=== PATIENT | male | born 1995 | race Caucasian/White ===

== ENCOUNTER 2017-07-16 14:10 | Emergency (ER) | payer MEDICAID, OTHER ==
[~2017-07-16] VITALS: Ht 160 cm; Wt 70.3 kg
[2017-07-16 14:27] VITALS: BP 148/89
--- NOTE | 2017-07-16 14:30 | NUR ---
PT PLACED IN THE ER LOBBY TO WAIT FOR A BED.
--- NOTE | 2017-07-16 14:40 | NUR ---
21 YO M BIB SELF W/ C/O A SHARP PAIN WHEN HE COUGHS THAT IS 10/10 IN HIS LUNGS BILAT. PT DENIES THE PAIN WHEN BREATHING IN OR OUT, STATES IT IS ONLY WHEN HE COUGHS. 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 DENIES N/V, BUT REPORTS FEELING CHILLS OR FEVERISH, DID NOT TAKE TEMPERATURE. PT DENIES ANY OTHER SYMPTOMS. PT A&O X4. GCS 15. CMS INTACT. AMBULATORY W/ STEADY GAIT. RR EVEN AND UNLABORED AT THIS TIME. LUNG SOUNDS CLEAR. ABD SOFT NON-TENDER. ER SECHRIST NOTIFIED. SAFETY PRECAUTIONS IN PLACE. PT NEEDS MET. WILL CONTINUE TO MONITOR.
--- NOTE | 2017-07-16 14:41 | NUR ---
PATIENT AMBULATED TO ER BED 9
[2017-07-16] MEDS ORDERED: ONDANSETRON 4 MG ODT PO ONE (15:05)
--- NOTE | 2017-07-16 15:45 | NUR ---
pt resting comfortably in [facility] at this time. will continue to monitor.
[2017-07-16 16:13] LABS: ANION GAP 12.1 (8-16); CARBON DIOXIDE 27.5 mmol/L (21-32); CREATININE 1.1 mg/dL (0.7-1.3); POTASSIUM 3.6 mmol/L (3.5-5.1)
[2017-07-16 16:14] LABS: BASOPHILS % (AUTO) 0.3 % (0.0-2.0); EOSINOPHILS # (AUTO) 0.1 K/uL (0-0.4); EOSINOPHILS % (AUTO) 1.4 % (0.0-4.0); HEMATOCRIT 44.5 % (36-52); HEMOGLOBIN 15.3 g/dL (12.0-18.0); LYMPHOCYTES # (AUTO) 0.8 K/uL (2.0-11.5); LYMPHOCYTES % (AUTO) 9.4 % (20.5-51.1); MEAN CORPUSCULAR HEMOGLOBIN 30 pg (27-31); MEAN CORPUSCULAR HGB CONC 34 g/dL (33-37); MEAN CORPUSCULAR VOLUME 87.7 fL (80-94); MONOCYTES # (AUTO) 0.8 K/uL (0.8-1.0); MONOCYTES % (AUTO) 8.6 % (1.7-9.3); NEUTROPHILS % (AUTO) 80.3 % (42.2-75.2); PLATELET COUNT (AUTO) 172 K/uL (140-450); RED BLOOD CELL COUNT(AUTO) 5.07 MIL/uL (4.20-6.10); RED CELL DISTRIBUTION WIDTH 12.9 % (11.6-13.7); WHITE BLOOD COUNT (AUTO) 8.7 K/uL (4.8-10.8)
[2017-07-16 16:22] LABS: ALBUMIN 4.1 g/dL (3.4-5.0); TOTAL BILIRUBIN 0.5 mg/dL (0.0-1.0)
--- NOTE | 2017-07-16 16:59 | NUR ---
Dr Lundy at pt bedside at this time. will continue to monitor.
[2017-07-16 17:06] VITALS: BP 136/74
--- NOTE | 2017-07-16 17:06 | NUR ---
Patient discharged with v/s stable. Written and verbal after care instructions given and explained. Patient verbalized understanding. Ambulatory with steady gait. All questions addressed prior to discharge. Advised to follow up with PMD.
== END 2017-07-16 17:06 | disposition home or self-care (01) ==
LOC: MED 14:10
DX: J06.9 Acute upper respiratory infection, unspecified (principal)
CPT/HCPCS: 36415; 71045; 80053; 85025; 99285; Q0092; S0119

== ENCOUNTER 2018-05-16 22:36 | Emergency (ER) | payer OTHER ==
[~2018-05-16] VITALS: Ht 160 cm; Wt 73.9 kg
[2018-05-16 22:44] VITALS: BP 129/59
--- NOTE | 2018-05-16 22:44 | NUR ---
PT TAKEN TO BED 2
--- NOTE | 2018-05-16 23:00 | NUR ---
PT BIB SELF C/O CHEST PAIN. PT STATES TO VOMITING 3 TIMES TODAY, THIN WHITE MUCOUS; FEVER X3 DAYS AGO; INTERMITTENT SHARP 5/10 CHEST PAIN, NON RADIATING; COUGH X3 DAYS. --AAOX4; SKIN WARM, DRY AND INTACT, COLOR APPROPRIATE TO RACE; LUNG SOUND CLEAR BL; BOWEL SOUNDS ACTIVE X4 QUAD; CAP REFIL <3. --PT IN BED; BED IN LOWER LOCKED POSITION. ER MD MADE AWARE OF STATUS. WILL CONTINUE TO MONITOR. PMH: DENIES RX: DENIES
--- NOTE | 2018-05-16 23:45 | NUR ---
Patient discharged with v/s stable. Written and verbal after care instructions given and explained. Patient alert, oriented and verbalized understanding of instructions. Ambulatory with steady gait. All questions addressed prior to discharge. ID band removed. Patient advised to follow up with PMD. Rx of Naprosyn, and Guaiatussin given. Patient educated on indication of medication including possible reaction and side effects. Opportunity to ask questions provided and answered.
[2018-05-17 00:40] VITALS: BP 132/54
== END 2018-05-16 23:45 | disposition home or self-care (01) ==
LOC: MED 22:36
DX: J20.9 Acute bronchitis, unspecified (principal); R07.9 Chest pain, unspecified
CPT/HCPCS: 71045; 93005; 99283; Q0092

== ENCOUNTER 2018-10-06 18:11 | Emergency (ER) | payer OTHER ==
[~2018-10-06] VITALS: Ht 160 cm; Wt 73.5 kg
[2018-10-06 18:18] VITALS: BP 128/73
--- NOTE | 2018-10-06 18:45 | NUR ---
PT C/O COUGH WITH ALOT OF PHLEGM ACCOMPANIED BY R EAR PAIN 6/10 X 1 WEEK. O2 SAT 96% RA. HAS SLIGHT REDNESS ON THE RT EYES. PER PT, HAS SORE THROAT SINCE LAST WEEK, PAINFUL TO SWALLOW OR EATING. DENIES ANY FEVER AT THIS TIME, NO SOB, CHEST PAIN. BREATHING EVEN AND NON-LABORED.PT AAOX4. COLLECETD THE URINE SAMPLE. PT STATES BEING HOMELSS SINCE LAST MONTH. ER MD TO SEE THE PT. WILL CONITNUE TO MONITOR PT. HX: DENIES RX: DENIES
[2018-10-06 18:51] VITALS: BP 128/73
--- NOTE | 2018-10-06 19:20 | NUR ---
BEDSIDE GIVEN TO EDUARDO RUBIN. PT IN SATBLE CONDITION.
--- NOTE | 2018-10-06 19:22 | NUR ---
RECEIVED REPORT FROM EDUARDO CLIFFORD. PT IN STABLE CONDITION AT THIS TIME. WILL CONTINUE TO MONITOR CLOSELY.
== END 2018-10-06 18:18 | disposition home or self-care (01) ==
LOC: MED 18:11
DX: J06.9 Acute upper respiratory infection, unspecified (principal); H92.02 Otalgia, left ear; H61.23 Impacted cerumen, bilateral
CPT/HCPCS: 99283